=== PATIENT | male | born 1965 | race Caucasian/White ===

== ENCOUNTER 2018-07-24 17:38 | Emergency (ER) | payer OTHER ==
[~2018-07-24] VITALS: Ht 165.1 cm; Wt 80.0 kg
[2018-07-24 17:45] VITALS: BP 152/95
[2018-07-24] MEDS ORDERED: CARBAMIDE PEROXIDE EAR DROPS 6.5%, 15ML LEFT EAR STA (18:30)
[2018-07-24] MEDS ORDERED: CARBAMIDE PEROXIDE EAR DROPS 6.5%, 15ML ONE (18:38)
== END 2018-07-24 21:18 | disposition home or self-care (01) ==
LOC: ED 20:13
DX: S09.22XA Traumatic rupture of left ear drum, initial encounter (principal); H61.23 Impacted cerumen, bilateral; X58.XXXA Exposure to other specified factors, initial encounter; Y93.89 Activity, other specified; Y92.89 Other specified places as the place of occurrence of the external cause; Y99.8 Other external cause status
CPT/HCPCS: 69210; 99284

== ENCOUNTER 2018-10-10 08:04 | Emergency (ER) | payer OTHER ==
[~2018-10-10] VITALS: Ht 165.1 cm; Wt 78.0 kg
[2018-10-10 08:16] VITALS: BP 164/96
[2018-10-10] MEDS ORDERED: OXYcodone/APAP 5/325MG TABLET PO ONE (09:00)
[2018-10-10] MEDS ORDERED: OXYcodone/APAP 5/325MG TABLET ONE ×2 (09:06→09:10)
== END 2018-10-10 09:29 | disposition home or self-care (01) ==
LOC: ED 09:13
DX: B02.33 Zoster keratitis (principal)
CPT/HCPCS: 99283

== ENCOUNTER 2019-12-10 18:11 | Emergency (ER) | payer OTHER ==
[~2019-12-10] VITALS: Ht 165.1 cm; Wt 80.0 kg
[2019-12-10 18:30] VITALS: BP 139/90
[2019-12-10] MEDS ORDERED: KETOROLAC 30 MG/1 ML ONE (18:55)
[2019-12-10] MEDS ORDERED: KETOROLAC 30 MG/1 ML IM ONE (19:00)
== END 2019-12-10 20:06 | disposition home or self-care (01) ==
LOC: ED 20:00
DX: S22.089A Unspecified fracture of T11-T12 vertebra, initial encounter for closed fracture (principal); S32.019A Unspecified fracture of first lumbar vertebra, initial encounter for closed fracture; S16.1XXA Strain of muscle, fascia and tendon at neck level, initial encounter; S29.012A Strain of muscle and tendon of back wall of thorax, initial encounter; R51 Headache; Z87.891 Personal history of nicotine dependence; V89.2XXA Person injured in unspecified motor-vehicle accident, traffic, initial encounter; Y93.89 Activity, other specified; Y92.488 Other paved roadways as the place of occurrence of the external cause; Y99.8 Other external cause status
CPT/HCPCS: 71046; 72050; 96372; 99284; J1885